=== PATIENT | male | born 1965 | race African-American/Black ===

== ENCOUNTER 2016-12-17 16:19 | Emergency (ER) | payer SELFPAY ==
[~2016-12-17] VITALS: Ht 182.9 cm; Wt 66.0 kg
[~2016-12-17 16:19] MED LIST: ACET-3161 GT; HYDR-523 PO; SULF1TAB48 PO
[2016-12-17 16:38] VITALS: BP 158/94
== END 2016-12-17 19:34 | disposition home or self-care (01) ==
LOC: ER 18:43
DX: L02.31 Cutaneous abscess of buttock (principal); F17.200 Nicotine dependence, unspecified, uncomplicated
CPT/HCPCS: 99283